=== PATIENT | male | born 1945 | race Caucasian/White ===

== ENCOUNTER 2017-04-12 19:10 | Emergency (ER) | payer MEDICARE, BC ==
--- NOTE | 2017-04-12 19:58 | CT REPORT ---
HISTORY: Visual problems COMPARISON: None. TECHNIQUE: Axial non-contrast images obtained from skull vertex through foramen magnum. Dose reduction technique was utilized. FINDINGS: Mild diffuse atrophy is noted. The ventricular size is normal. Mild periventricular white matter tejeda ges noted. There is no subdural or epidural collection, midline shift or mass effect. No evidence for acute infarction or hemorrhage. Skull is intact. Visualized paranasal sinuses and mastoid air cells are clear. The globes are grossly normal. IMPRESSION: Mild diffuse atrophy and mild periventricular chronic white matter change. No evidence for acute infarction or hemorrhage particularly in the occipital region. Final Electronic Signature: This report was electronically signed by Cristino Sanford MD on 04/12/2017 7 :56 PM. hermila /
[2017-04-12 20:22] LABS: BASOPHIL# 0.1 X 10^3uL (0.0-0.1); BASOPHILS 0.9 % (0.0-2.0); EOSINOPHILS 1.4 % (0.0-6.0); EOSINOPHILS# 0.1 X 10^3uL (0.0-0.4); HEMATOCRIT 47.2 % (42.0-54.0); HEMOGLOBIN 16.4 g/dL (14.0-18.0); LYMPHOCYTES 47.3 % (20.0-40.0); LYMPHOCYTES# 3.8 X 10^3uL (0.8-3.8); MEAN CELL VOLUME 90.5 fL (80.0-100.0); MEAN CORPUS. HGB CONCENTRATION 34.8 g/dL (32.0-36.0); MEAN CORPUSCULAR HEMOGLOBIN 31.5 pg (29.0-35.0); MEAN PLATELET VOLUME 8.4 fL (7.4-10.4); MONOCYTES 6.6 % (2.0-10.0); MONOCYTES# 0.5 X 10^3uL (0.2-1.0); NEUTROPHILS 43.8 % (54.0-75.0); NEUTROPHILS# 3.6 X 10^3uL (2.6-6.7); PLATELET COUNT 189 X 10^3uL (130-440); RED BLOOD COUNT 5.22 X 10^6uL (4.20-6.10); RED CELL DISTRIBUTION WIDTH 12.2 % (11.5-14.5); WHITE BLOOD COUNT 8.1 X 10^3uL (3.9-10.7)
[2017-04-12 20:28] LABS: A/G RATIO 1.4; ALBUMIN 4.6 g/dL (3.5-5.0); ALKALINE PHOSPHATASE 77 U/L (38-126); ALT 90 U/L (21-72); AST 92 U/L (17-59); BILIRUBIN, TOTAL 0.9 mg/dL (0.2-1.3); BLOOD UREA NITROGEN 12 mg/dL (9-20); CALCIUM 9.4 mg/dL (8.4-10.2); CHLORIDE 100 mmol/L (98-107); EST GLOMERULAR FILTRATION RATE > 60 mL/min; ETHYL ALCOHOL 294 mg/dL (<10); GLUCOSE 173 mg/dL (70-100); SODIUM 140 mmol/L (137-145)
--- NOTE | 2017-04-12 21:05 | ER NURSING DOCUMENTATION ---
Nurse's Notes [facility] Name:Jason Rodas Age:71 yrs Sex:Male :1945 Arrival Date:04/12/2017 Time:19:10 Bed3 Private MD: Diagnosis:Alcohol (ETOH) Intoxication, Nondependent Presentation: 04/12 19:15 Acuity: RADHA 2 tg 19:23 Presenting complaint: Patient states: developed double vision while driving. states he lb thinks it is from to much alcohol today. drank 2 glasses of wine, beer and vodka. symptoms have resolved at this time. speech clear. Transition of care: patient was not received from another setting of care. Notified ED Physician of Dr. Winston notified. 19:23 Method Of Arrival: Walk In Triage Assessment: 19:28 General: Appears in no apparent distress, Behavior is appropriate for age, pleasant. lb Pain: Denies pain. EENT: No deficits noted. Neuro: Level of Consciousness is awake, alert, Oriented to person, place, time, event, Coil Taper are equal bilaterally Moves all extremities. Gait is steady, Speech is normal, Facial symmetry appears normal, Pupils are PERRLA. Cardiovascular: No deficits noted. Respiratory: Airway is patent Trachea midline Respiratory effort is even, unlabored, Respiratory pattern is regular, symmetrical, Breath sounds are clear bilaterally. Derm: No deficits noted. Musculoskeletal: No deficits noted. Historical: - Allergies: PENICILLINS; SULFA (SULFONAMIDES); - Home Meds: 1. Lisinopril Oral 2. Lipitor Oral 3. lutein oral 4. Folic Acid Oral 5. aspirin 81 mg oral tab 6. finasteride oral - PMHx: Hypertension; HIGH CHOLESTEROL; enlarged prostate; - PSHx: SHOULDER SURGERY; None; - Tetanus: < 10 years. - Ebola Screening: : Patient denies exposure to infectious person. Patient denies travel to an Ebola-affected area in the 21 days before illness onset. . - Immunization history: Flu Vaccine < 1 year. - Social history: Smoking status: Patient states was never smoker of tobacco. Patient uses alcohol on a daily basis. Screenin:29 Infectious Disease Risk None. Abuse screen: Denies threats or abuse. Denies injuries lb from another. Nutritional screening: No deficits noted. Assessment: 19:29 See Triage Assessment done by same RN. Neuro: Level of Consciousness is awake, alert, lb Oriented to person, place, time, event, Coil Taper are equal bilaterally Moves all extremities. Gait is steady, Speech is normal, Facial symmetry appears normal, Pupils are PERRLA. Vital Signs: 19:18 BP 125 / 68 RA Sitting (auto/reg); Pulse 92 LA; Resp 16 S; Temp 97.8(O); Pulse Ox 90% em3 on R/A; Weight 77.11 kg (R); Height 5 ft. 6 in. (167.64 cm) (R); Pain 0/10; 21:03 BP 119 / 57; Pulse 74; Resp 15; Pulse Ox 95% on R/A; Pain 0/10; lb 19:18 Body Mass Index 27.44 (77.11 kg, 167.64 cm) em3 ED Course: 19:12 Patient arrived in ED. em3 19:13 Michael Winston MD is Attending Physician. be 19:15 Triage completed. tg 19:18 Valuables Remains with patient Patient has correct armband on for positive em3 identification. Bed in low position. 19:23 Amarilys Londono is Primary Nurse. lb 19:30 Labs drawn. By project construction assistant manager Sent per order to lab. Inserted saline lock: 20 gauge in left em3 antecubital area and blood collected. 19:33 EKG done. (by ED staff). Reviewed by Michael Winston MD. em3 19:50 EKG attached lp 19:[address] dnn 19:[address] moved [address]. dnn Administered Medications: 19:35 Drug: NS 0.9% 1000 ml; Route: IV; Rate: bolus; Site: left antecubital; lb 21:03 Follow up: IV Status: Completed infusion; IV Intake: 1000ml lb Intake: 21:03 IV: 1000ml; Total: 1000ml. lb Outcome: 20:53 Discharge ordered by . be 21:03 Discharged to home ambulatory. lb 21:03 Condition: stable 21:03 Discharge Assessment: Patient awake and alert. Oriented to person, place, time, event. 21:03 Instructed on discharge instructions, follow up and referral plans. 21:03 IV D/New 21:04 Patient left the ED. lb Signatures: Dominik Rodrigez RN RN Laura Morel RN RN lp CatrachitoMichael reddy MD MD be Norman, David dnn Meiklejohn, Eric em3 Amarilys Londono
--- NOTE | 2017-04-12 21:05 | ER PHYSICIAN DOCUMENTATION ---
Physician Documentation [facility] Name:Jason Rodas Age:71 yrs Sex:Male :1945 Arrival Date:04/12/2017 Time:19:10 Bed3 Private MD: Michael Mcginnis Disposition: 04/12/17 20:53 Discharged to Home/Self Care. Impression: Alcohol (ETOH) Intoxication, Nondependent. - Condition is Fair. - Discharge Instructions: ALCOHOL INTOXICATION. - Medical Reconciliation form form. - Follow up: Private Physician; When: As needed; Reason: Recheck today's complaints. - Problem is new. - Symptoms have improved. HPI: 04/12 19:53 This 71 yrs old Male presents to ER via Walk In with complaints of Vision be Problem. 19:53 The patient presents with dizziness, lightheadedness, feeling off balance, after be drinking 2 shots of vodka, one beer and 2 glasses of wine since late afternoon. Onset: The symptom(s)/episode began/occurred gradually, just prior to arrival. Context: alcohol consumption. Modifying factors: the symptoms are aggravated by standing up, changing position. Associated signs and symptoms: Pertinent positives: blurred vision, confusion, Pertinent negatives: chest pain, numbness, seizure, vomiting. Historical: - Allergies: PENICILLINS; SULFA (SULFONAMIDES); - Home Meds: 1. Lisinopril Oral 2. Lipitor Oral 3. lutein oral 4. Folic Acid Oral 5. aspirin 81 mg oral tab 6. finasteride oral - PMHx: Hypertension; HIGH CHOLESTEROL; enlarged prostate; - PSHx: SHOULDER SURGERY; None; - Tetanus: < 10 years. - Ebola Screening: : Patient denies exposure to infectious person. Patient denies travel to an Ebola-affected area in the 21 days before illness onset. . - Immunization history: Flu Vaccine < 1 year. - Social history: Smoking status: Patient states was never smoker of tobacco. Patient uses alcohol on a daily basis. ROS: 19:55 Neuro: Positive for dizziness, Negative for altered mental status, gait disturbance, be headache, numbness, speech changes. 19:55 All other systems are negative. Exam: 19:56 Constitutional: This is a well developed, well nourished patient who is awake, alert, be and in no acute distress. Intoxicated Head/Face: Normocephalic, atraumatic. Eyes: Pupils equal round and reactive to light, extra-ocular motions intact. Lids and lashes normal. Conjunctiva and sclera are non-icteric and not injected. Cornea within normal limits. Periorbital areas with no swelling, redness, or edema. ENT: Nares patent. No nasal discharge, no septal abnormalities noted. Tympanic membranes are normal and external auditory canals are clear. Oropharynx with no redness, swelling, or masses, exudates, or evidence of obstruction, uvula midline. Mucous membranes moist. Neck: Trachea midline, no thyromegaly or masses palpated, and no cervical lymphadenopathy. Supple, full range of motion without nuchal rigidity, or vertebral point tenderness. No Meningismus. Chest/axilla: Normal chest wall appearance and motion. Nontender with no deformity. No lesions are appreciated. Cardiovascular: Regular rate and rhythm with a normal S1 and S2. No gallops, murmurs, or rubs. Normal PMI, no JVD. No pulse deficits. 19:56 Respiratory: Lungs have equal breath sounds bilaterally, clear to auscultation and be percussion. No rales, rhonchi or wheezes noted. No increased work of breathing, no retractions or nasal flaring. 21:22 Neuro: Orientation: appropriate for stated age, Cerebellar function: is grossly normal be based on the patient's age, Gait: is steady, without difficulty. Vital Signs: 19:18 BP 125 / 68 RA Sitting (auto/reg); Pulse 92 LA; Resp 16 S; Temp 97.8(O); Pulse Ox 90% em3 on R/A; Weight 77.11 kg (R); Height 5 ft. 6 in. (167.64 cm) (R); Pain 0/10; 21:03 BP 119 / 57; Pulse 74; Resp 15; Pulse Ox 95% on R/A; Pain 0/10; lb 19:18 Body Mass Index 27.44 (77.11 kg, 167.64 cm) em3 MDM: 19:13 Patient medically screened. be 19:43 ECG:. be 19:50 EKG attached lp 19:57 Differential diagnosis: cardiac arrhythmia, generalized weakness, head injury, be hypovolemia, alcoholic intoxication. Data reviewed: vital signs, nurses notes, lab test result(s), EKG, radiologic studies. 20:52 Data reviewed: and as a result, I will discharge patient, administer IV fluids, NS be bolus. 04/12 20:20 Order name: LACTATE; Complete Time: 20:28 EDMS 04/12 20:28 Interpretation: Abnormal. be 04/12 20:24 Order name: CBC AUTO DIF, MDIF/RMOR IF IND; Complete Time: 20:52 EDMS 04/12 20:28 Interpretation: Normal. be 04/12 20:31 Order name: COMPREHENSIVE METABOLIC PANEL; Complete Time: 20:52 EDMS 07 20:50 Interpretation: Normal Except: elevated LFT's. be 04/12 20:31 Order name: ETHYL ALCOHOL; Complete Time: 20:52 EDMS 07 20:52 Interpretation: Abnormal: elevated EtOH. be 04/12 20:00 Order name: CAT SCAN; HEAD W/O CON [id number]; Complete Time: 20:28 EDMS 04/12 19:26 Order name: EKG - 12 Lead; Complete Time: 19:49 be EC:43 Rate is 70 beats/min. Rhythm is regular, Normal Sinus Rhythm with No ectopy, Right be bundle branch block. QRS [place] is Normal. [place] interval is normal. QRS interval is normal. QT interval is prolonged. No Q waves. T waves are Normal. No ST changes noted. Clinical impression: No evidence of ischemia. Interpreted by me. Dispensed Medications: 19:35 Drug: NS 0.9% 1000 ml; Route: IV; Rate: bolus; Site: left antecubital; lb 21:03 Follow up: IV Status: Completed infusion; IV Intake: 1000ml lb Signatures: Laura Morel RN RN lp Michael Winston MD MD be Amarilys Londono lb
== END 2017-04-12 21:05 | disposition home or self-care (01) ==
LOC: EEVIPCON 19:10 → ER 19:10
DX: F10.129 Alcohol abuse with intoxication, unspecified (principal); I10 Essential (primary) hypertension; Z79.899 Other long term (current) drug therapy; Z79.82 Long term (current) use of aspirin
CPT/HCPCS: 70450; 80053; 80320; 83605; 85025; 93005; 96360; 99284